=== PATIENT | male | born 1955 | race Caucasian/White ===

== ENCOUNTER 2020-07-06 13:24 | Emergency (ER) | payer MEDICARE, OTHER ==
[~2020-07-06] VITALS: Ht 182.9 cm; Wt 104.3 kg
[2020-07-06] MEDS ORDERED: SPIRIVA RESPIMAT4 GM INH (13:44)
[2020-07-06] MEDS ORDERED: ZYPREXA5 MG PO (13:44)
[2020-07-06] MEDS ORDERED: GLUCOPHAGE1000 MG PO (13:44)
[2020-07-06] MEDS ORDERED: DEPAKOTE500 MG PO (13:45)
[2020-07-06] MEDS ORDERED: ZOCOR40 MG PO (13:45)
[2020-07-06] MEDS ORDERED: BENZTROPINE MESY2 MG PO (13:45)
[2020-07-06] MEDS ORDERED: FLAGYL500 MG PO (16:31)
== END 2020-07-06 16:48 | disposition home or self-care (01) ==
LOC: ED 13:24
DX: K52.9 Noninfective gastroenteritis and colitis, unspecified (principal); F25.9 Schizoaffective disorder, unspecified; Z87.891 Personal history of nicotine dependence; Z79.899 Other long term (current) drug therapy; Z79.84 Long term (current) use of oral hypoglycemic drugs
CPT/HCPCS: 74177; 80053; 81001; 83690; 83735; 85025; 99284-25; J7030; Q9967